=== PATIENT | female | born 1970 | race Caucasian/White ===

== ENCOUNTER 2021-12-25 18:04 | Emergency (ER) | payer OTHER ==
[2021-12-25 18:51] VITALS: BP 121/73; PULSE 77; RESP 18; TEMP 98.8; BMI 24.7
[2021-12-25] MEDS ORDERED: KETOROLAC TROMETHAMINE 30 MG/1 ML VIAL IM ONE (21:06)
[2021-12-25] MEDS ORDERED: diazePAM 5 MG TABLET PO ONE (21:06)
[2021-12-25] MEDS ORDERED: LIDOCAINE 5% TOPICAL PATCH TP ONE (21:06)
[2021-12-25] MEDS ORDERED: KETOROLAC TROMETHAMINE 30 MG/1 ML VIAL ONE (21:25)
[2021-12-25] MEDS ORDERED: diazePAM 5 MG TABLET ONE (21:25)
[2021-12-25] MEDS ORDERED: LIDOCAINE 5% TOPICAL PATCH ONE (21:25)
[2021-12-25 21:59] LABS: RDW 13.8 % (11.6-15.6)
[2021-12-25] MEDS ORDERED: LIDOCAINE PATCH REMOVAL MC ONE (22:00)
[2021-12-25 22:02] LABS: EPI CELLS 1 /uL (0-25.1); HYALINE CASTS 1 /uL (0-3.1); PH,URINE 5.5 (5.0-8.0); URINE APPEARANCE CLEAR; URINE BACTERIA 5 /uL (0-1359); URINE BILIRUBIN NEGATIVE (NEGATIVE); URINE COLOR YELLOW; URINE GLUCOSE (UA) NEGATIVE (NEGATIVE); URINE KETONE TRACE (NEGATIVE); URINE LEUK ESTERASE NEGATIVE (NEGATIVE); URINE NITRITE NEGATIVE (NEGATIVE); URINE PROTEIN NEGATIVE (NEGATIVE); URINE RBC 18 /uL (0-23.9); URINE UROBILINOGEN 0.2 mg/dL (0.2-1.0); URINE WBC 3 /uL (0-25.8)
[2021-12-25 22:23] LABS: BASO % 0.7 % (0-2.0); EOS % 2.1 % (0-4.5); HEMATOCRIT 39.2 % (32.4-45.2); HEMOGLOBIN 12.9 GM/dL (10.7-15.3); LYMPH % 25.4 % (8-40); MCH 30.4 pg (25.7-33.7); MEAN PLT VOLUME 8.7 fl (7.5-11.1); MONO % 2.9 % (3.8-10.2); NEUT % 68.9 % (42.8-82.8); PLATELET COUNT 293 10^3/uL (134-434); RBC 4.26 M/mm3 (3.60-5.2); WHITE BLOOD COUNT 9.1 K/mm3 (4.0-10.0)
[2021-12-25 22:26] LABS: CALCIUM 9.4 mg/dL (8.5-10.1)
[2021-12-25 22:27] LABS: ALBUMIN 4.1 g/dl (3.4-5.0); BLOOD UREA NITROGEN 14.4 mg/dL (7-18)
[2021-12-25 22:29] LABS: CREATININE 0.6 mg/dL (0.55-1.3)
[2021-12-25 22:31] LABS: TOT PROT 7.8 g/dl (6.4-8.2)
[2021-12-25 22:34] LABS: BILIRUBIN,TOTAL 0.4 mg/dL (0.2-1)
== END 2021-12-25 23:25 | disposition home or self-care (01) ==
LOC: JERFT 18:04 → JER 18:04 → JERFT 23:25
PROC: 3E023GC Introduction of Other Therapeutic Substance into Muscle, Percutaneous Approach (ICD-10-PCS; principal; 2021-12-25)
DX: M54.50 Low back pain, unspecified (principal)
CPT/HCPCS: 36415; 72100-TC-FY; 80053; 81003; 85025; 99284-25